=== PATIENT | female | born 1950 | race Hispanic/Latino ===

== ENCOUNTER → 2019-03-21 | Outpatient (CLI) | payer OTHER ==
[~2019-03-21] VITALS: Ht 154.9 cm; Wt 103.4 kg
[~2019-03-21] MED LIST: REGADENOSON 0.4 MG/5 ML PF SYG IVP SCH
== END | disposition home or self-care (01) ==
LOC: SHCH 08:25
PROVIDERS: ATTEND Internal Medicine Cardiovascular Disease
DX: I25.9 Chronic ischemic heart disease, unspecified (principal)
CPT/HCPCS: 78452; 93017; 96374; A9500 ×2; J2785

== ENCOUNTER 2019-06-03 05:40 | Day surgery (SDC) | payer OTHER, MEDICARE ==
[2019-06-01 12:46] LABS: APPEARANCE,URINE Clear (CLEAR); BILIRUBIN,URINE Negative (NEGATIVE); COLOR,URINE Yellow (YELLOW); GLUCOSE, URINE (UA) Negative (NEGATIVE); KETONES,URINE Negative (NEGATIVE); LEUKOCYTE ESTERASE ,URINE Moderate (NEGATIVE); NITRATE,URINE Negative (NEGATIVE); OCCULT BLOOD,URINE Negative (NEGATIVE); PROTEIN,URINE Negative (NEGATIVE); UROBILINOGEN,URINE 0.2 mg/dL (0.2-1.0)
[2019-06-01 12:52] VITALS: BP 153/69
[2019-06-01 13:25] LABS: BACTERIA,URINE Rare /HPF (None Seen); RBC,URINE 0-1 /HPF (0-1); SQUAMOUS EPITHELIAL CELL,UR Few /HPF (0-2); WBC,URINE 0-1 /HPF (0-1)
[2019-06-01 13:51] LABS: BASOPHILS % (AUTO) 0.7 % (0.0-5.0); EOSINOPHILS % (AUTO) 1.7 % (0.0-8.0); HEMATOCRIT 35.8 % (36-48); LYMPHOCYTES % (AUTO) 30.8 % (21.0-51.0); MEAN CORPUSCULAR HGB CONC 33.7 g/dL (32.0-36.0); MEAN CORPUSCULAR VOLUME 89.1 fL (79-99); MONOCYTES % (AUTO) 9.8 % (3.0-13.0); NUCLEATED RED BLOOD CELLS 0.1 % (0.0-0.19); PLATELET COUNT (AUTO) 294 K/uL (130-400); RED BLOOD CELL COUNT(AUTO) 4.01 MIL/uL (4.00-5.50); RED CELL DISTRIBUTION WIDTH 15.5 % (11.0-15.5); WHITE BLOOD COUNT (AUTO) 5.5 K/uL (4.8-10.8)
[2019-06-01 14:04] LABS: INR 1.03 (0.85-1.15); PARTIAL THROMBOPLASTIN TIME 33.1 SEC (26.3-35.5); PROTHROMBIN TIME 10.8 SEC (9.6-11.6)
[~2019-06-03] VITALS: Ht 158.8 cm; Wt 102.1 kg
[2019-06-03] VITALS (11 sets, daily range): BP systolic 120–141; BP diastolic 50–66
[~2019-06-03 05:40] MED LIST changes: +AMLO5TAB9 PO; +ASPI-555 PO; +ATOR40TA69 PO; +CHOL400T4 PO; +CYAN250014 PO; +GLIP10TA19 PO; +HYDR25TA PO; +ISOS30TA6 PO; +LEVO125T11 PO; +LISI40TA4 PO; +METF-446 PO; +METO25TA6 PO; +OMEG-116 PO; +PANT40TA25 PO; -REGADENOSON 0.4 MG/5 ML PF SYG IVP SCH; +VITA400C70 PO
[2019-06-03] MEDS ORDERED: SODIUM CHLORIDE 0.9% 1000ML 1,000 ML IV ONE (06:24)
[2019-06-03] MEDS ORDERED: LIDOCAINE HCL 2% 20ML ONE (07:24)
[2019-06-03] MEDS ORDERED: NITROGLYCERIN 5 MG/ML 10 ML VIAL IV ONE (07:24)
[2019-06-03] MEDS ORDERED: HEPARIN SODIUM 1000UNIT/ML 10ML VIAL ONE (07:24)
[2019-06-03] MEDS ORDERED: IOHEXOL 350 MG/ML 100ML INFUS..BTL IV ONE (07:24)
[2019-06-03] MEDS ORDERED: IOHEXOL-350 50ML VIAL IV ONE (07:24)
[2019-06-03] MEDS ORDERED: MIDAZOLAM HCL 1 MG/ML 2ML VIAL ONE (07:32)
[2019-06-03] MEDS ORDERED: SODIUM CHLORIDE 0.9% 1000ML 1,000 ML IV SCH (08:00)
[2019-06-03] MEDS ORDERED: GLUCAGON 1MG KIT 1 MG ML IM PRN (08:15)
[2019-06-03] MEDS ORDERED: DEXTROSE 50%-WATER 50 ML DISP.SYRIN IV PRN (08:15)
--- NOTE | 2019-06-03 12:50 | NUR ---
D/C PT LEFT VIA WHEEL CHAIR IN PVT CAR WITH FAMILY AND BELONGINGS. F/U SCHEDULED WITH DR. HOPSON IN 1 WEEK.
== END 2019-06-03 12:50 ==
LOC: DAH 05:40
PROVIDERS: ATTEND Internal Medicine Cardiovascular Disease
DX: I25.118 Atherosclerotic heart disease of native coronary artery with other forms of angina pectoris (principal); I10 Essential (primary) hypertension; E11.9 Type 2 diabetes mellitus without complications; E78.5 Hyperlipidemia, unspecified; E03.9 Hypothyroidism, unspecified; Z88.1 Allergy status to other antibiotic agents; Z90.49 Acquired absence of other specified parts of digestive tract; Z79.84 Long term (current) use of oral hypoglycemic drugs; Z79.82 Long term (current) use of aspirin; Z79.4 Long term (current) use of insulin; Z79.899 Other long term (current) drug therapy; Z82.49 Family history of ischemic heart disease and other diseases of the circulatory system; Z83.3 Family history of diabetes mellitus; Z82.5 Family history of asthma and other chronic lower respiratory diseases; Z79.01 Long term (current) use of anticoagulants
CPT/HCPCS: 36415; 71045; 80048; 81001; 82948 ×2; 85025; 85610; 85730; 93005; 93458; A4606; C1760; C1894; J1644; J2250; J3490 ×2; J7030; Q9965; Q9967 ×2; 99156; 99157

== ENCOUNTER 2019-06-16 14:01 | Observation (INO) | payer OTHER, MEDICARE ==
[~2019-06-16] VITALS: Ht 157.5 cm; Wt 102.8 kg
[~2019-06-16 14:01] MED LIST changes: -TRAM50TA4 PO
[2019-06-16] MEDS ORDERED: FENTANYL CITRATE PF 50 MCG/1 ML 2ML VIAL ONE (14:35)
[2019-06-16] MEDS ORDERED: ONDANSETRON HCL 4 MG/2 ML VIAL ONE (14:36)
[2019-06-16 14:44] LABS: BASOPHILS % (AUTO) 0.5 % (0.0-5.0); EOSINOPHILS % (AUTO) 2.3 % (0.0-8.0); HEMATOCRIT 27.7 % (36-48); LYMPHOCYTES % (AUTO) 16.7 % (21.0-51.0); MEAN CORPUSCULAR HEMOGLOBIN 29.8 pg (27.0-33.0); MEAN CORPUSCULAR HGB CONC 33.2 g/dL (32.0-36.0); MEAN CORPUSCULAR VOLUME 89.7 fL (79-99); MONOCYTES % (AUTO) 11.8 % (3.0-13.0); NEUTROPHILS % (AUTO) 68.7 % (40.0-77.0); NUCLEATED RED BLOOD CELLS 0.2 % (0.0-0.19); PLATELET COUNT (AUTO) 287 K/uL (130-400); RED BLOOD CELL COUNT(AUTO) 3.09 MIL/uL (4.00-5.50); RED CELL DISTRIBUTION WIDTH 15.5 % (11.0-15.5); WHITE BLOOD COUNT (AUTO) 10.2 K/uL (4.8-10.8)
[2019-06-16 14:54] LABS: CREATININE 0.9 mg/dL (0.5-1.5); POTASSIUM 4.1 mmol/L (3.5-5.1)
[2019-06-16 14:55] LABS: INR 1.1 (0.85-1.15); PARTIAL THROMBOPLASTIN TIME 31.8 SEC (26.3-35.5); PROTHROMBIN TIME 11.5 SEC (9.6-11.6)
[2019-06-16 14:58] LABS: ALBUMIN 2.4 g/dL (3.5-5.0); BILIRUBIN,TOTAL 1.1 mg/dL (0.2-1.0); TOTAL PROTEIN, SERUM 6.9 g/dL (6.0-8.3)
[2019-06-16 15:11] LABS: B-TYPE NATRIURETIC PEPTIDE 977 pg/mL (0-100)
[2019-06-16] MEDS ORDERED: IOHEXOL-350 75 ML VIAL IV ONE (15:16)
[2019-06-16] MEDS ORDERED: ASPIRIN 325 MG TABLET ONE (16:21)
[2019-06-16] MEDS ORDERED: LEVOFLOXACIN 500 MG/D5W 100 ML 100 ML ONE (16:22)
[2019-06-16] MEDS ORDERED: FUROSEMIDE 10 MG/ML 4ML VIAL ONE (18:17)
[2019-06-16] MEDS ORDERED: ONDANSETRON HCL 4 MG/2 ML VIAL IVP PRN (18:30)
[2019-06-16] MEDS ORDERED: NITROGLYCERIN 0.4 MG SL TAB SL PRN (18:30)
[2019-06-16] MEDS ORDERED: MORPHINE SULFATE 2 MG/ML 1ML SYG ONE (18:46)
[2019-06-16 20:30] VITALS: BP 142/55
[2019-06-16] MEDS: FUROSEMIDE 10 MG/ML 4ML VIAL IVP SCH (20:35)
--- NOTE | 2019-06-16 20:35 | NUR ---
RECEIVED FROM ER BY STRETCHER. ASSISTED TO BED 229. CALL LIGHT GIVEN AND EXPLAINED. INSTRUCTED TO CALL FOR WANTS OR NEEDS. SEE ADMISSION PAPER WORK.
[2019-06-16 23:00] VITALS: BP 112/67
[2019-06-16] MEDS: MORPHINE SULFATE 2 MG/ML 1ML SYG IVP PRN (23:19)
--- NOTE | 2019-06-16 23:25 | NUR ---
MD VISIT DR NESBITT IN . MADE AWARE OF CONSULT AND HE SAW HER . NEW ORDERS RECEIVED AND CARRIED OUT. DRSG PLACED TO STERNAL INCISION. RT IN AND INSTRUCTED ON IS. PULSE OXIMETER 92 ON 2LNC. RT HERE AND DECREASE O2 TO 1L.
[2019-06-17 03:00] VITALS: BP 124/56
[2019-06-17 03:14] LABS: TROPONIN I 3.07 ng/mL (0.00-0.06)
[2019-06-17] MEDS: FUROSEMIDE 10 MG/ML 4ML VIAL IVP SCH ×2 (05:35→16:35)
[2019-06-17 08:00] VITALS: BP 154/76
[2019-06-17 08:36] LABS: HEMATOCRIT 32.4 % (36-48); MEAN CORPUSCULAR HEMOGLOBIN 29.7 pg (27.0-33.0); MEAN CORPUSCULAR VOLUME 89.9 fL (79-99); NUCLEATED RED BLOOD CELLS 0.2 % (0.0-0.19); PLATELET COUNT (AUTO) 279 K/uL (130-400); RED BLOOD CELL COUNT(AUTO) 3.61 MIL/uL (4.00-5.50); RED CELL DISTRIBUTION WIDTH 15.5 % (11.0-15.5); WHITE BLOOD COUNT (AUTO) 7.6 K/uL (4.8-10.8)
[2019-06-17 08:49] LABS: ALBUMIN 2.7 g/dL (3.5-5.0); BILIRUBIN,TOTAL 1.1 mg/dL (0.2-1.0); POTASSIUM 3.7 mmol/L (3.5-5.1); TOTAL PROTEIN, SERUM 7.7 g/dL (6.0-8.3)
[2019-06-17] MEDS: GUAIFENESIN 600 MG TABLET.ER PO SCH ×2 (09:08→20:14)
[2019-06-17] MEDS: MORPHINE SULFATE 2 MG/ML 1ML SYG IVP PRN ×2 (09:17→16:36)
[2019-06-17 11:52] VITALS: BP 141/66
--- NOTE | 2019-06-17 13:15 | NUR ---
Left Thoracentesis performed by Dr. Canales at bedside. Patient is stable post procedure. 850ml of bloody fluid was drained from site. Time out was performed pre procedure.
--- NOTE | 2019-06-17 13:41 | NUR ---
DC PLAN resides at home with sister terell , pt is independent with adls and ambulation. no dme. . states she drives.dc plan is back home. states no dc needs. states sister will be caring for her at home at time of dc. Addendum: 06/17/19 at 1343 by HAIDER SHEPHERD RN CM Amended: Links added.
[2019-06-17] MEDS ORDERED: LIDOCAINE HCL MPF 1% 5ML VIAL ONE (14:17)
[2019-06-17 15:25] VITALS: BP 124/71
[2019-06-17] MEDS ORDERED: KETOROLAC TROMETHAMINE 30MG/ML IV PRN (19:00)
[2019-06-17] MEDS ORDERED: KETOROLAC TROMETHAMINE 30MG/ML ONE (19:01)
[2019-06-17 19:44] VITALS: BP 130/64
[2019-06-17 23:16] VITALS: BP 116/42
--- NOTE | 2019-06-18 00:32 | NUR ---
here and saw pt.received new order to discontinue Oxygen and pt. possible going home tomorrow morning
[2019-06-18 03:41] VITALS: BP 113/66
[2019-06-18 04:02] LABS: BASOPHILS % (AUTO) 0.3 % (0.0-5.0); EOSINOPHILS % (AUTO) 2.2 % (0.0-8.0); HEMATOCRIT 25.4 % (36-48); LYMPHOCYTES % (AUTO) 19.2 % (21.0-51.0); MEAN CORPUSCULAR HEMOGLOBIN 30.5 pg (27.0-33.0); MEAN CORPUSCULAR HGB CONC 34.6 g/dL (32.0-36.0); MEAN CORPUSCULAR VOLUME 88.2 fL (79-99); MONOCYTES % (AUTO) 10.4 % (3.0-13.0); NEUTROPHILS % (AUTO) 67.9 % (40.0-77.0); NUCLEATED RED BLOOD CELLS 0.1 % (0.0-0.19); PLATELET COUNT (AUTO) 281 K/uL (130-400); RED BLOOD CELL COUNT(AUTO) 2.88 MIL/uL (4.00-5.50); RED CELL DISTRIBUTION WIDTH 15.5 % (11.0-15.5); WHITE BLOOD COUNT (AUTO) 7.2 K/uL (4.8-10.8)
[2019-06-18 04:22] LABS: MAGNESIUM 1.4 mg/dL (1.80-2.40); POTASSIUM 3.6 mmol/L (3.5-5.1)
[2019-06-18] MEDS: FUROSEMIDE 10 MG/ML 4ML VIAL IVP SCH (05:56)
[2019-06-18] MEDS ORDERED: OMEG-116 PO (06:22)
[2019-06-18] MEDS ORDERED: TRAM50TA4 PO (06:22)
[2019-06-18 07:00] VITALS: BP 127/66
[2019-06-18] MEDS ORDERED: LEVOTHYROXINE 125 MCG TABLET PO SCH (07:28)
[2019-06-18] MEDS: GUAIFENESIN 600 MG TABLET.ER PO SCH (07:47)
[2019-06-18] MEDS ORDERED: METFORMIN HCL 500 MG TABLET PO SCH (08:00)
--- NOTE | 2019-06-18 08:00 | NUR ---
ASSESSMENT PT IS AAOX4 DENIES CP DENIES SOB DENIES NV NO COMPLAINTS, RESTING SITTING UPRIGHT IN CHAIR. CALL LIGHT WITHIN REACH. AM MEDS GIVEN.
[2019-06-18] MEDS: LINAGLIPTIN 5 MG TABLET PO SCH ×2 (08:31→08:36)
[2019-06-18] MEDS ORDERED: GLIPIZIDE XL 10MG TAB PO SCH (09:00)
[2019-06-18] MEDS ORDERED: CHOLECALCIFEROL 400 UNIT PO SCH (09:00)
[2019-06-18] MEDS ORDERED: CYANOCOBALAMIN (VITAMIN B-12) 1,000 MCG TABLET PO SCH (09:00)
[2019-06-18] MEDS ORDERED: CLOPIDOGREL BISULFATE 75 MG TAB PO SCH (09:00)
[2019-06-18] MEDS ORDERED: MULTIVITAMIN TABLET PO SCH (09:00)
[2019-06-18] MEDS ORDERED: ASPIRIN 81 MG EC TAB PO SCH (09:00)
[2019-06-18] MEDS ORDERED: VITAMIN E 400 UNIT CAPSULE PO SCH (09:00)
[2019-06-18] MEDS ORDERED: FISH OIL 1000 MG/CAP PO SCH (09:00)
--- NOTE | 2019-06-18 10:30 | NUR ---
DR HAYES ROUNDED OK TO DC HOME WHEN OK WITH PRIMARY
--- NOTE | 2019-06-18 14:00 | NUR ---
DR OLIVEIRA ROUNDED OK TO DC HOME
--- NOTE | 2019-06-18 14:34 | NUR ---
DC TO HOME INSTRUCTIONS GIVEN TO PATIENT AND SISTER. AGREE TO TAKE MEDICATIONS ORDERED, AGREE TO FOLLOW UP WITH MDS ORDERED. ALL QUESTIONS ANSWERED, PIV REMOVED CATH TIP INTACT, TELE PACK REMOVED. ALL BELONGINGS GATHERED AWAITING RIDE.
[2019-06-18] MEDS ORDERED: ATORVASTATIN CALCIUM 40 MG TABLET PO SCH (21:00)
== END 2019-06-18 14:57 | disposition home or self-care (01) ==
LOC: EDH 14:01 → EDHIP 16:10 → 2AH 20:41
PROVIDERS: ADMIT Internal Medicine Pulmonary Disease; ATTEND Internal Medicine Pulmonary Disease
DX: I97.0 Postcardiotomy syndrome (principal); E03.9 Hypothyroidism, unspecified; E11.9 Type 2 diabetes mellitus without complications; E66.01 Morbid (severe) obesity due to excess calories; E78.5 Hyperlipidemia, unspecified; I10 Essential (primary) hypertension; I25.10 Atherosclerotic heart disease of native coronary artery without angina pectoris; I48.0 Paroxysmal atrial fibrillation; J90 Pleural effusion, not elsewhere classified; Z95.1 Presence of aortocoronary bypass graft; Z79.899 Other long term (current) drug therapy
CPT/HCPCS: 36415 ×3; 71045 ×2; 71275; 80048; 80053 ×2; 82550 ×2; 83735; 83874; 83880; 84484 ×2; 85025 ×2; 85027; 85610; 85730; 93005 ×3; 96374; 96375 ×2; 96376 ×2; 99284; A6250; G0378 ×46; J1885 ×2; J1940 ×4; J1956; J2405; J3010; J3490; Q9967

== ENCOUNTER → 2019-06-16 | Outpatient (CLI) | payer OTHER, MEDICARE ==
[~2019-06-16] MED LIST changes: -AMLO5TAB9 PO; +CLOP75TA14 PO; -HYDR25TA PO; -ISOS30TA6 PO; -LISI40TA4 PO; -METO25TA6 PO; +MULT-1203 PO; -PANT40TA25 PO; +SITA100T12 PO; +TRAM50TA4 PO
== END | disposition home or self-care (01) ==
LOC: RAH 13:19
PROVIDERS: ATTEND Thoracic Surgery (Cardiothoracic Vascular Surgery)
DX: R09.89 Other specified symptoms and signs involving the circulatory and respiratory systems (principal); I25.10 Atherosclerotic heart disease of native coronary artery without angina pectoris; I11.9 Hypertensive heart disease without heart failure
CPT/HCPCS: 71045

== ENCOUNTER 2021-01-03 15:02 | Emergency (ER) | payer OTHER, MEDICARE ==
[~2021-01-03 15:02] MED LIST changes: -ASPI-555 PO; +ASPI-556 PO; +TRAM50TA4 PO; +VITA-164 PO; -VITA400C70 PO
[2021-01-03 16:15] LABS: APPEARANCE,URINE Clear (CLEAR); BILIRUBIN,URINE Negative (NEGATIVE); COLOR,URINE Yellow (YELLOW); GLUCOSE, URINE (UA) Negative (NEGATIVE); KETONES,URINE Negative (NEGATIVE); LEUKOCYTE ESTERASE ,URINE Small (NEGATIVE); NITRATE,URINE Negative (NEGATIVE); OCCULT BLOOD,URINE Negative (NEGATIVE); PROTEIN,URINE Negative (NEGATIVE); UROBILINOGEN,URINE 0.2 mg/dL (0.2-1.0)
[2021-01-03 16:36] LABS: BASOPHILS % (AUTO) 0.3 % (0.0-5.0); EOSINOPHILS % (AUTO) 1.8 % (0.0-8.0); HEMATOCRIT 38.3 % (36-48); LYMPHOCYTES % (AUTO) 36.2 % (21.0-51.0); MEAN CORPUSCULAR HEMOGLOBIN 29.2 pg (27.0-33.0); MEAN CORPUSCULAR HGB CONC 33.2 g/dL (32.0-36.0); MONOCYTES % (AUTO) 8.4 % (3.0-13.0); NEUTROPHILS % (AUTO) 53.1 % (40.0-77.0); PLATELET COUNT (AUTO) 262 K/uL (130-400); RED BLOOD CELL COUNT(AUTO) 4.35 MIL/uL (4.00-5.50); RED CELL DISTRIBUTION WIDTH 13.4 % (11.0-15.5); WHITE BLOOD COUNT (AUTO) 6.1 K/uL (4.8-10.8)
[2021-01-03 16:54] LABS: INR 1.12 (0.85-1.15); PROTHROMBIN TIME 12.1 SEC (9.6-11.6)
[2021-01-03 16:55] LABS: PARTIAL THROMBOPLASTIN TIME 33.6 SEC (26.3-35.5)
[2021-01-03 17:02] LABS: BACTERIA,URINE Few /HPF (None Seen); RBC,URINE 0-1 /HPF (0-1); SQUAMOUS EPITHELIAL CELL,UR Few /HPF (0-2)
[2021-01-03 17:05] LABS: CREATININE 0.9 mg/dL (0.5-1.5); POTASSIUM 3.4 mmol/L (3.5-5.1)
[2021-01-03 17:09] LABS: ALBUMIN 3.9 g/dL (3.5-5.0); B-TYPE NATRIURETIC PEPTIDE 37 pg/mL (0-100); BILIRUBIN,TOTAL 0.5 mg/dL (0.2-1.0); TOTAL PROTEIN, SERUM 8.1 g/dL (6.0-8.3)
== END 2021-01-03 18:51 | disposition home or self-care (01) ==
LOC: EDH 15:02
DX: R00.0 Tachycardia, unspecified (principal); Z20.822 Contact with and (suspected) exposure to COVID-19; I25.10 Atherosclerotic heart disease of native coronary artery without angina pectoris; E11.9 Type 2 diabetes mellitus without complications; I10 Essential (primary) hypertension; E03.9 Hypothyroidism, unspecified; Z90.49 Acquired absence of other specified parts of digestive tract; Z88.5 Allergy status to narcotic agent
CPT/HCPCS: 36415; 71045; 80053; 81001; 82550; 83880; 84443; 84484; 85025; 85610; 85730; 93005

== ENCOUNTER → 2022-05-05 | Outpatient (CLI) | payer OTHER, MEDICARE | END | disposition home or self-care (01) | LOC: RAH 10:27 | PROVIDERS: ATTEND Internal Medicine Gastroenterology | DX: K31.84 Gastroparesis (principal); R11.2 Nausea with vomiting, unspecified; R10.13 Epigastric pain; R68.81 Early satiety | CPT/HCPCS: 78264; A9541 ==

== ENCOUNTER → 2023-03-17 | Outpatient (CLI) | payer OTHER, MEDICARE ==
[~2023-03-17] MED LIST changes: +CLOP-31 PO; -CLOP75TA14 PO; -VITA-164 PO; +VITA-348 PO
[2023-03-17 16:21] LABS: BASOPHILS % (AUTO) 0.4 % (0.0-5.0); EOSINOPHILS % (AUTO) 1.7 % (0.0-8.0); HEMATOCRIT 41.5 % (36-48); LYMPHOCYTES % (AUTO) 40.7 % (21.0-51.0); MEAN CORPUSCULAR HEMOGLOBIN 31.5 pg (27.0-33.0); MEAN CORPUSCULAR HGB CONC 34.5 g/dL (32.0-36.0); MEAN CORPUSCULAR VOLUME 91.4 fL (79-99); MONOCYTES % (AUTO) 9.1 % (3.0-13.0); NEUTROPHILS % (AUTO) 47.9 % (40.0-77.0); PLATELET COUNT (AUTO) 239 K/uL (130-400); RED BLOOD CELL COUNT(AUTO) 4.54 MIL/uL (4.00-5.50); RED CELL DISTRIBUTION WIDTH 13.2 % (11.0-15.5); WHITE BLOOD COUNT (AUTO) 4.7 K/uL (4.8-10.8)
[2023-03-17 16:45] LABS: CREATININE 0.9 mg/dL (0.5-1.5); POTASSIUM 3.6 mmol/L (3.5-5.1)
== END | disposition home or self-care (01) ==
LOC: LAB 14:02
PROVIDERS: ATTEND Internal Medicine Cardiovascular Disease
DX: I25.10 Atherosclerotic heart disease of native coronary artery without angina pectoris (principal); E03.9 Hypothyroidism, unspecified; Z95.1 Presence of aortocoronary bypass graft
CPT/HCPCS: 36415; 80048; 83880; 85025

== ENCOUNTER → 2023-06-30 | Outpatient (CLI) | payer OTHER, MEDICARE | END | disposition home or self-care (01) | LOC: SHCH 08:16 | PROVIDERS: ATTEND Internal Medicine Cardiovascular Disease | DX: I73.9 Peripheral vascular disease, unspecified (principal) | CPT/HCPCS: 93925 ==